=== PATIENT | female | born 1985 | race Caucasian/White ===

== ENCOUNTER 2018-06-15 15:24 | Emergency (ER) | payer OTHER ==
[2018-06-15 15:31] VITALS: BP 125/72; PULSE 100; TEMP 97.9; BMI 48.6
[2018-06-15] MEDS ORDERED: ALBUTEROL SO4 2.5/IPRATROPIUM 0.5 INH SOL 3 ML VIAL.NEB. NEB ONE ×2 (15:47→16:31)
--- NOTE | 2018-06-15 16:16 | PDOC ---
History of Present Illness - General Chief Complaint: Shortness of Breath Stated Complaint: ASTHMA Time Seen by Provider: 06/15/18 15:51 - History of Present Illness Initial Comments: 06/15/18 16:47 The patient is a 32 year old female with no significant PMH who presents for evaluation of shortness of breath. The patient reports a 2-3 day history of worsening shortness of breath with non-productive cough and associated chest tightness prompting her presentation to the ED for further evaluation. She otherwise denies fevers, chills, nausea, vomiting, abdominal pain, or changes with urination or bowel movements. Past History - Past Medical History Allergies/Adverse Reactions: Allergies Allergy/AdvReac Type Severity Reaction Status Date / Time Shellfish Allergy Severe Swelling Verified 06/15/18 15:26 Home Medications: Ambulatory Orders Albuterol Sulfate Inhaler - [Ventolin HFA Inhaler -] 1 - 2 inh PO QID PRN #1 inhaler 06/15/18 Azithromycin [Zithromax 250mg Tablets -] 250 mg PO UTDICT #6 tab 06/15/18 Ibuprofen [Advil -] 600 mg PO QID 06/15/18 Prednisone [Prednisone 50 MG TABLETS] 50 mg PO DAILY #4 tablet 06/15/18 Anemia: Yes Asthma: No Cancer: No Cardiac Disorders: No COPD: No Diabetes: No HTN: No Seizures: No Thyroid Disease: No - Surgical History Cholecystectomy: Yes - Immunization History Immunization Up to Date: Yes () - Suicide/Smoking/Psychosocial Hx Smoking Status: No Smoking History: Former smoker Have you smoked in the past 12 months: No Number of Cigarettes Smoked Daily: 3 If you are a former smoker, when did you quit?: 06/2013 Information on smoking cessation initiated: No Hx Alcohol Use: No Drug/Substance Use Hx: No Hx Substance Use Treatment: No Review of Systems - Review of Systems Comments:: 06/15/18 16:53 Constitutional: No fevers, chills, fatigue, malaise HEENT: No Rhinorrhea, nasal congestion, visual changes Cardiovascular: Chest tightness. No syncope, palpitations, lightheadedness Respiratory: Cough, SOB, No Hemoptysis, Gastrointestinal: No Abdominal pain, Nausea, Vomiting, Constipation, Diarrhea, Melena Genitourinary: No Dysuria, Frequency, Urgency, Hesitancy, Hematuria, Flank pain Musculoskeletal: No Myalgia, arthralgia Skin: No rashes, itching, bruising, pallor Neurologic: No Headache, Dizziness, Numbness, Weakness, or Tingling Psychiatric: No Hallucinations. No SI or HI *Physical Exam - Vital Signs Last Vital Signs Temp Pulse Resp BP Pulse Ox 97.9 F 100 H 22 H 125/72 97 06/15/18 15:29 06/15/18 15:29 06/15/18 15:29 06/15/18 15:29 06/15/18 15:29 - Physical Exam Comments: 06/15/18 16:53 General Appearance: Nourished. No Apparent Distress HEENT: No Pharyngeal Erythema, Tonsillar Exudate, Tonsillar Erythema Neck: No Cervical Lymphadenopathy Respiratory/Chest: Lungs Clear, Normal Breath Sounds. No Crackles, Rales, Rhonchi, Wheezing Cardiovascular: Regular Rhythm, Regular Rate. No Murmur, Gallops, Rubs Gastrointestinal/Abdominal: Normal Bowel Sounds, Soft. No Guarding, Rebound, Tenderness Musculoskeletal: No CVA Tenderness Extremity: Normal Capillary Refill Integumentary: Normal Color, Dry, Warm Neurologic: Fully Oriented, Alert, Normal Mood/Affect, Normal Response, ED Treatment Course - Medications Given in the ED: ED Medications Discontinued Medications Generic Name Dose Route Start Last Admin Trade Name Freq PRN Reason Stop Dose Admin Albuterol/Ipratropium 2 amp 06/15/18 15:47 06/15/18 15:47 Duoneb - NEB 06/15/18 15:48 2 amp NOW ONE Administration Medical Decision Making - Medical Decision Making 06/15/18 16:53 The patient is a 32 year old female with no significant PMH who presents for evaluation of shortness of breath. Differential includes but is not limited to : Pneumonia, Bronchitis, Infectious. Given the patient's history and physical exam, we will obtain a chest plain film and ekg. The patient received duonebs prior to evaluation and reports improvement in her symptoms. We will treat with duonebs and prednison and continue to monitor and reassess while here in the ED. 06/15/18 18:34 Chest plain film is unremarkable. It is likely the patient's symptoms are due to an acute bronchitis and asthma exacerbation. The patient was reassessed and reports improvement in their symptoms. We are comfortable discharging the patient home in stable condition. Patient and family made aware of impression and plan, return precautions discussed including but not limited to worsening pain or symptoms, fevers, or signs of infection, chest pain, respiratory distress, inability to tolerate oral intake, dehydration, syncope, or neurologic changes. The patient is to follow up with PMD and as recommended within 1 week, follow up information provided and the patient will call for an appointment. The patient is to take Prednisone, Albuterol, Azithromycin as instructed for duration of time and continue with supportive care, avoid triggers and precipitants. Patient is safe for outpatient follow-up. *DC/Admit/Observation/Transfer Diagnosis at time of Disposition: Cough, Shortness of breath, Bronchitis Acute asthma exacerbation Qualifiers: Asthma severity: unspecified severity Asthma persistence: unspecified Qualified Code(s): J45.901 - Unspecified asthma with (acute) exacerbation - Discharge Dispostion Disposition: HOME Condition at time of disposition: Stable Decision to Admit order: No - Prescriptions Prescriptions: Albuterol Sulfate Inhaler - [Ventolin HFA Inhaler -] 1 - 2 inh PO QID PRN #1 inhaler PRN Reason: Wheezing Azithromycin [Zithromax 250mg Tablets -] 250 mg PO UTDICT #6 tab Prednisone [Prednisone 50 MG TABLETS] 50 mg PO DAILY #4 tablet - Referrals Referrals: Suresh Gerard [Primary Care Provider] - - Patient Instructions Printed Discharge Instructions: DI for Acute Bronchitis Additional Instructions: 1) Please follow-up with your primary care doctor in the next 2-3 days. Please call tomorrow to schedule a follow up appointment. If you cannot follow up with your doctor within 1 week please return to the Emergency Department for any urgent issues. 2) Your laboratory / imaging results were normal here in the ER. 3) If you have any worsening of symptoms or any other concerns please return to the ER immediately. Return if worsening symptoms including fevers, headache, vomiting, visual or hearing disturbances, abdominal pain, chest pain, shortness of breath, syncope, dehydration, inability to take things by mouth/vomiting, altered mental status, or worsening concerning symptoms. 4) Please continue taking your home medications as directed. Your medications on discharge include Prednisone, Albuterol, and Azithromycin. - Post Discharge Activity Forms/Work/School Notes: Back to Work
[2018-06-15] MEDS ORDERED: SODIUM CHLORIDE 1,000 ML IV STA (16:27)
[2018-06-15] MEDS ORDERED: ACETAMINOPHEN 1000 MG/100 ML VIAL (NON FORMULARY) IVPB ONE (16:27)
[2018-06-15] MEDS ORDERED: predniSONE 20 MG TABLET (UD) PO ONE (16:31)
--- NOTE | 2018-06-15 18:25 | PDOC ---
Documentation entered by Doyle Trinidad SCRIBE, acting as scribe for Colt Pizano MD. Colt Pizano MD: This documentation has been prepared by the bradibAmos jordan Nirvannie, SCRIBE, under my direction and personally reviewed by me in its entirety. I confirm that the documentation accurately reflects all work, treatment, procedures, and medical decision making performed by me. Attending Attestation - Resident Resident Name: Eb Pierson - ED Attending Attestation I have performed the following: I have examined & evaluated the patient, The case was reviewed & discussed with the resident, I agree w/resident's findings & plan, Exceptions are as noted - HPI HPI: 06/15/18 16:42 The patient is a 32 year old female, with no significant past medical history, who presents to the emergency department with, 3 days of pleuritic chest pain described as a tightness with associated cough and right sided headache. Patient notes she is positive for sick contacts (her daughter). She denies recent fevers, chills, or dizziness. She denies recent nausea, vomit, diarrhea or constipation. She denies recent dysuria, frequency, urgency or hematuria. Allergies: Shellfish. - Physicial Exam PE: 06/15/18 16:49 GENERAL: Awake, alert, and fully oriented, in no acute distress HEAD: No signs of trauma NECK: Normal ROM. LUNGS: + Breath sounds equal, clear to auscultation bilaterally, brief excursions blt. HEART: Regular rate and rhythm, normal S1 and S2, no murmurs, rubs or gallops NEUROLOGICAL: Cranial nerves II through XII grossly intact. Normal speech, normal gait SKIN: Warm, Dry, normal turgor, no rashes or lesions noted. - Medical Decision Making 06/15/18 17:09 A portion of this note was documented by [employer] under my direction. I have reviewed the details of the note, within reason, and agree with the documentation with the following case summary and management plan written by me. Patient treated in the ED. Nursing notes are reviewed and incorporated into the medical decision-making. Vital signs reviewed. Peripheral IV access obtained by the nurse, laboratory studies are drawn and sent, reviewed and interpreted by myself. Vital Signs Temp Pulse Resp BP Pulse Ox 97.9 F 100 H 22 H 125/72 97 06/15/18 15:29 06/15/18 15:29 06/15/18 15:29 06/15/18 15:29 06/15/18 15:29 32-year-old female with past medical history of asthma presents with nonproductive coughing for several days. Patient reports positive sick contacts with her daughter having upper respirator infection. The patient's been having coughing and chest tightness. No fevers or chills. I suspect patient likely have an asthma exacerbation with bronchitis. We'll obtain a chest x-ray rule out pneumonia. Trial duonabs and prednisone and reassess. 06/15/18 18:20 Chest xray reviewed by me, pending official radiology read. No acute findings. Pt feels better. Will d/c with azithromycin, prednisone, and albuterol pump. Heart Score/ECG Review #1 ECG reviewed & interpreted by me at: 16:45 06/15/18 17:10 NSR 87, no std/joann, normal axis, normal intervals, QTC 425 msec. Normal ECG
--- NOTE | 2018-06-16 08:53 | EKG ---
Test Reason : Blood Pressure : / mmHG Vent. Rate : 087 BPM Atrial Rate : 087 BPM P-R Int : 144 ms QRS Dur : 080 ms QT Int : 354 ms P-R-T Axes : 062 039 044 degrees QTc Int : 425 ms NORMAL SINUS RHYTHM NORMAL ECG WHEN COMPARED WITH ECG OF 28-AUG-2013 02:43, NO SIGNIFICANT CHANGE WAS FOUND Confirmed by LEELA LONGORIA MD ([id number]) on 06/16/2018 8:53:02 AM Referred By: Confirmed By:LEELA LONGORIA MD
== END 2018-06-15 18:55 | disposition home or self-care (01) ==
LOC: JER 15:24
PROC: 3E033NZ Introduction of Analgesics, Hypnotics, Sedatives into Peripheral Vein, Percutaneous Approach (ICD-10-PCS; principal; 2018-06-15)
PROC: 3E0F7GC Introduction of Other Therapeutic Substance into Respiratory Tract, Via Natural or Artificial Opening (ICD-10-PCS; 2018-06-15)
PROC: 3E0F7GC Introduction of Other Therapeutic Substance into Respiratory Tract, Via Natural or Artificial Opening (ICD-10-PCS; 2018-06-15)
DX: J40 Bronchitis, not specified as acute or chronic (principal)
CPT/HCPCS: 71046-TC-FY; 84703; 93005; 93010; 94640; 96374; 99282-25; J0131

== ENCOUNTER 2020-07-16 20:15 | Emergency (ER) | payer OTHER ==
[2020-07-16 20:28] VITALS: BP 117/79; PULSE 88; TEMP 97; BMI 51.7
[2020-07-16] MEDS ORDERED: ACETAMINOPHEN 500 MG TABLET (FP) PO ONE (20:38)
[2020-07-16] MEDS ORDERED: ACETAMINOPHEN 500 MG TABLET (FP) ONE (20:40)
== END 2020-07-16 21:28 | disposition home or self-care (01) ==
LOC: JER 20:15
DX: R51.9 Headache, unspecified (principal); Z3A.11 11 weeks gestation of pregnancy
CPT/HCPCS: 99283-25

== ENCOUNTER 2020-08-23 17:53 | Emergency (ER) | payer OTHER ==
[2020-08-23 18:05] VITALS: BMI 51.1
[2020-08-23] MEDS ORDERED: ONDANSETRON 4 MG/2 ML VIAL IVPB ONE (18:28)
[2020-08-23] MEDS ORDERED: SODIUM CHLORIDE 1,000 ML IV STA ×2 (18:28→20:21)
[2020-08-23] MEDS ORDERED: ONDANSETRON 4 MG/2 ML VIAL ONE (19:11)
[2020-08-23 19:18] LABS: BASO % 0.7 % (0-2.0); EOS % 1.5 % (0-4.5); HEMATOCRIT 37.1 % (32.4-45.2); HEMOGLOBIN 12.2 GM/dL (10.7-15.3); LYMPH % 20.2 % (8-40); MCH 24.1 pg (25.7-33.7); MCHC 32.8 g/dl (32.0-36.0); MEAN CELL VOLUME 73.5 fl (80-96); MEAN PLT VOLUME 9.1 fl (7.5-11.1); MONO % 5.1 % (3.8-10.2); NEUT % 72.5 % (42.8-82.8); PLATELET COUNT 296 10^3/uL (134-434); RBC 5.04 M/mm3 (3.60-5.2); RDW 19.1 % (11.6-15.6); WHITE BLOOD COUNT 10.8 K/mm3 (4.0-10.0)
[2020-08-23 19:21] LABS: EPI CELLS >36 /uL (0-25.1); HYALINE CASTS 4 /uL (0-3.1); URINE APPEARANCE CLOUDY; URINE BACTERIA 3444 /uL (0-1359); URINE BILIRUBIN NEGATIVE (NEGATIVE); URINE COLOR DK YELLOW; URINE GLUCOSE (UA) NEGATIVE (NEGATIVE); URINE KETONE TRACE (NEGATIVE); URINE LEUK ESTERASE 2+ (NEGATIVE); URINE NITRITE NEGATIVE (NEGATIVE); URINE PROTEIN NEGATIVE (NEGATIVE); URINE WBC 82 /uL (0-25.8)
[2020-08-23 19:48] LABS: BLOOD UREA NITROGEN 8.4 mg/dL (7-18); CALCIUM 9.3 mg/dL (8.5-10.1)
[2020-08-23 19:51] LABS: CREATININE 0.6 mg/dL (0.55-1.3)
[2020-08-23 19:53] LABS: BILIRUBIN,TOTAL 0.4 mg/dL (0.2-1); TOT PROT 7.4 g/dl (6.4-8.2)
[2020-08-23] MEDS ORDERED: CEFTRIAXONE 1,000 MG in DEXTROSE 5%-WATER - 50 ML IVPB ONE (20:21)
[2020-08-23] MEDS ORDERED: CEFTRIAXONE 1 GM/50 ML BAG ONE (20:32)
[2020-08-23 21:30] LABS: URINE RBC 22.4 /uL (0-23.9)
[2020-08-23 21:47] VITALS: BP 126/77; PULSE 72; TEMP 98.5
== END 2020-08-23 21:47 | disposition home or self-care (01) ==
LOC: JER 17:53
PROC: 3E03329 Introduction of Other Anti-infective into Peripheral Vein, Percutaneous Approach (ICD-10-PCS; principal; 2020-08-23)
PROC: 3E033GC Introduction of Other Therapeutic Substance into Peripheral Vein, Percutaneous Approach (ICD-10-PCS; 2020-08-23)
PROC: 3E0337Z Introduction of Electrolytic and Water Balance Substance into Peripheral Vein, Percutaneous Approach (ICD-10-PCS; 2020-08-23)
PROC: 3E0337Z Introduction of Electrolytic and Water Balance Substance into Peripheral Vein, Percutaneous Approach (ICD-10-PCS; 2020-08-23)
DX: O21.1 Hyperemesis gravidarum with metabolic disturbance (principal); N30.00 Acute cystitis without hematuria; Z3A.17 17 weeks gestation of pregnancy
CPT/HCPCS: 36415; 80053; 81003; 83690; 85025; 99284-25

== ENCOUNTER 2021-01-26 08:50 | Inpatient (IN) | payer OTHER ==
[2021-01-26 09:42] VITALS: BMI 51.3
[2021-01-28 08:58] LABS: BASO % 0.2 % (0-2.0); EOS % 0.5 % (0-4.5); HEMATOCRIT 26.5 % (32.4-45.2); HEMOGLOBIN 8.7 GM/dL (10.7-15.3); LYMPH % 13.4 % (8-40); MCH 24.5 pg (25.7-33.7); MEAN CELL VOLUME 74.3 fl (80-96); MEAN PLT VOLUME 8.9 fl (7.5-11.1); MONO % 5.9 % (3.8-10.2); PLATELET COUNT 209 10^3/uL (134-434); RBC 3.57 M/mm3 (3.60-5.2); RDW 15.5 % (11.6-15.6); WHITE BLOOD COUNT 10.1 K/mm3 (4.0-10.0)
[2021-01-30 10:24] VITALS: BP 121/77; PULSE 83; TEMP 97.8
== END 2021-01-30 17:25 | disposition home or self-care (01) | DRG 540 ==
LOC: JLDR 08:50 → J3W 01-27 22:46
PROVIDERS: ADMIT Specialist; ATTEND Specialist
PROC: 10D00Z1 Extraction of Products of Conception, Low, Open Approach (ICD-10-PCS; principal; 2021-01-26)
DX: O61.0 Failed medical induction of labor (principal); O62.0 Primary inadequate contractions; O99.214 Obesity complicating childbirth; E66.01 Morbid (severe) obesity due to excess calories; Z3A.39 39 weeks gestation of pregnancy; Z37.0 Single live birth
CPT/HCPCS: 36415; 80053; 85025; 85027; 85610; 85730; 86850; 86900; 86901; 88307-TC; C9803; J0131; U0003; U0005

== ENCOUNTER 2022-12-23 11:43 | Emergency (ER) | payer BC, OTHER ==
[2022-12-23 12:06] VITALS: RESP 18; BMI 49.7
[2022-12-23 12:09] VITALS: TEMP 98.1
[2022-12-23 12:10] VITALS: BP 136/78; PULSE 68
[2022-12-23] MEDS ORDERED: ACETAMINOPHEN 1000 MG/100 ML BAG IVPB ONE (12:17)
[2022-12-23] MEDS ORDERED: ACETAMINOPHEN INJECTION 100 ML IVPB ONE (12:21)
[2022-12-23 12:47] LABS: BASO % 0.2 % (0-2.0); EOS % 1.5 % (0-4.5); HEMOGLOBIN 10.8 GM/dL (10.7-15.3); LYMPH % 12.9 % (8-40); MCH 22.7 pg (25.7-33.7); MCHC 31.9 g/dl (32.0-36.0); MEAN CELL VOLUME 71.2 fl (80-96); MEAN PLT VOLUME 8.6 fl (7.5-11.1); MONO % 4.9 % (3.8-10.2); NEUT % 80.5 % (42.8-82.8); PLATELET COUNT 345 10^3/uL (134-434); RBC 4.77 M/mm3 (3.60-5.2); RDW 16.9 % (11.6-15.6); WHITE BLOOD COUNT 11.3 K/mm3 (4.0-10.0)
[2022-12-23 12:54] LABS: ALBUMIN 3.3 g/dl (3.4-5.0); BLOOD UREA NITROGEN 12.9 mg/dL (7-18); CALCIUM 8.9 mg/dL (8.5-10.1)
[2022-12-23 12:57] LABS: CREATININE 0.8 mg/dL (0.55-1.3)
[2022-12-23 12:58] LABS: BILIRUBIN,TOTAL 0.2 mg/dL (0.2-1)
[2022-12-23 16:13] LABS: EPI CELLS 36 /uL (0-25.1); HYALINE CASTS 1 /uL (0-3.1); URINE APPEARANCE CLEAR; URINE BACTERIA 1099 /uL (0-1359); URINE BILIRUBIN NEGATIVE (NEGATIVE); URINE COLOR YELLOW; URINE GLUCOSE (UA) NEGATIVE (NEGATIVE); URINE KETONE NEGATIVE (NEGATIVE); URINE LEUK ESTERASE TRACE (NEGATIVE); URINE NITRITE NEGATIVE (NEGATIVE); URINE PROTEIN NEGATIVE (NEGATIVE); URINE UROBILINOGEN 0.2 mg/dL (0.2-1.0); URINE WBC 25 /uL (0-25.8)
== END 2022-12-23 18:09 | disposition home or self-care (01) ==
LOC: JER 11:43
PROC: 3E033NZ Introduction of Analgesics, Hypnotics, Sedatives into Peripheral Vein, Percutaneous Approach (ICD-10-PCS; principal; 2022-12-23)
DX: R10.9 Unspecified abdominal pain (principal); K42.9 Umbilical hernia without obstruction or gangrene
CPT/HCPCS: 36415; 74177-TC; 80053; 81003; 83690; 84703; 85025; 87086; 87186; 93005; 93010; 99285-25

== ENCOUNTER 2023-11-28 14:59 | Inpatient (IN) | payer BC, OTHER ==
[2023-11-28 15:18] VITALS: BMI 48.8
[2023-11-28] MEDS ORDERED: MORPHINE SULFATE 2 MG/ML SYRINGE ONE (16:18)
[2023-11-28] MEDS: morphine CARPU-JECT 2 MG/1 ML DISP.SYRIN IVPUSH ONE (16:30)
[2023-11-28 16:34] LABS: BASO % 0.1 % (0-2.0); EOS % 2.2 % (0-4.5); HEMATOCRIT 34.9 % (32.4-45.2); HEMOGLOBIN 11.2 GM/dL (10.7-15.3); LYMPH % 30.8 % (8-40); MCH 22.6 pg (25.7-33.7); MEAN CELL VOLUME 70.7 fl (80-96); MEAN PLT VOLUME 8.9 fl (7.5-11.1); MONO % 4.3 % (3.8-10.2); NEUT % 62.6 % (42.8-82.8); PLATELET COUNT 336 10^3/uL (134-434); RBC 4.93 M/mm3 (3.60-5.2); RDW 17.5 % (11.6-15.6); WHITE BLOOD COUNT 10.5 K/mm3 (4.0-10.0)
[2023-11-28 16:52] LABS: POTASSIUM 3.9 mmol/L (3.5-5.1)
[2023-11-28 16:54] LABS: CALCIUM 9.2 mg/dL (8.5-10.1)
[2023-11-28 16:55] LABS: ALBUMIN 3.5 g/dl (3.4-5.0); BLOOD UREA NITROGEN 9.8 mg/dL (7-18)
[2023-11-28 16:55] LABS: VENOUS O2 SATURATION 47.3 % (70-80); VENOUS PCO2 40.8 mmHg (38-52); VENOUS PH 7.387 (7.310-7.410)
[2023-11-28 16:58] LABS: CREATININE 0.7 mg/dL (0.55-1.3)
[2023-11-28 16:59] LABS: BILIRUBIN,TOTAL 0.4 mg/dL (0.2-1)
[2023-11-28 17:49] LABS: EPI CELLS 16 /uL (0-25.1); HYALINE CASTS 2 /uL (0-3.1); PH,URINE 5.5 (5.0-8.0); URINE APPEARANCE CLOUDY; URINE BACTERIA 1872 /uL (0-1359); URINE BILIRUBIN NEGATIVE (NEGATIVE); URINE COLOR ORANGE; URINE GLUCOSE (UA) NEGATIVE (NEGATIVE); URINE KETONE NEGATIVE (NEGATIVE); URINE LEUK ESTERASE 2+ (NEGATIVE); URINE NITRITE NEGATIVE (NEGATIVE); URINE PROTEIN 2+ (NEGATIVE); URINE RBC 11654 /uL (0-23.9); URINE UROBILINOGEN 0.2 mg/dL (0.2-1.0); URINE WBC 284 /uL (0-25.8)
[2023-11-28] MEDS ORDERED: morphine SULFATE 4 MG/ML VIAL ONE (20:53)
[2023-11-28] MEDS: morphine CARPU-JECT 4 MG/1 ML DISP.SYRIN IVPUSH ONE (20:57)
[2023-11-28] MEDS: LACTATED RINGERS SOLUTION 1000 ML INFUS.BAG IV ONE (21:06)
[2023-11-28 22:20] LABS: INR 1.07 (0.83-1.09); PROTHROMBIN TIME (PATIENT) 12.1 SEC (9.7-13.0)
[2023-11-28 22:23] LABS: ACTIVATED PTT 29.2 SECONDS (25.2-36.5)
[2023-11-28] MEDS ORDERED: CEFTRIAXONE 1 GM/50 ML BAG ONE (22:44)
[2023-11-28] MEDS: LACTATED RINGERS SOLUTION 1,000 ML/1,000 ML INFUS.BAG IV SCH (22:59)
[2023-11-29] MEDS ORDERED: MORPHINE SULFATE 2 MG/ML SYRINGE IVPUSH PRN (01:09)
[2023-11-29] MEDS ORDERED: ONDANSETRON 4 MG/2 ML VIAL IVPUSH PRN (01:20)
[2023-11-29] MEDS ORDERED: ALBUTEROL SO4 HFA INHALER IH PRN (01:24)
[2023-11-29 02:28] VITALS: RESP 18
[2023-11-29] MEDS: SODIUM CHLORIDE 1,000 ML IV SCH (02:39)
[2023-11-29 07:54] LABS: HEMATOCRIT 31.9 % (32.4-45.2); MCH 22.6 pg (25.7-33.7); MCHC 31.5 g/dl (32.0-36.0); MEAN CELL VOLUME 71.7 fl (80-96); MEAN PLT VOLUME 8.9 fl (7.5-11.1); PLATELET COUNT 282 10^3/uL (134-434); RBC 4.44 M/mm3 (3.60-5.2); RDW 17.4 % (11.6-15.6); WHITE BLOOD COUNT 6.5 K/mm3 (4.0-10.0)
[2023-11-29 08:13] LABS: POTASSIUM 4.4 mmol/L (3.5-5.1)
[2023-11-29 08:40] LABS: CALCIUM 8.6 mg/dL (8.5-10.1)
[2023-11-29 08:41] LABS: BLOOD UREA NITROGEN 8.4 mg/dL (7-18); MAGNESIUM 2.2 mg/dL (1.8-2.4)
[2023-11-29 08:44] LABS: CREATININE 0.7 mg/dL (0.55-1.3); PHOSPHOROUS 3.5 mg/dL (2.5-4.9)
[2023-11-29 08:46] LABS: BILIRUBIN,TOTAL 0.6 mg/dL (0.2-1)
[2023-11-29] MEDS ORDERED: CEFTRIAXONE 1 GM/50 ML BAG ONE (09:32)
[2023-11-29] MEDS ORDERED: ACETAMINOPHEN INJECTION 100 ML ONE (10:01)
[2023-11-29] MEDS: ACETAMINOPHEN 1000 MG/100 ML BAG IVPB PRN (10:08)
[2023-11-29] MEDS: CEFTRIAXONE 1 GM in DEXTROSE 5%-WATER - 50 ML IVPB SCH (10:09)
[2023-11-29] MEDS: IOHEXOL (OMNIPAQUE IV) 350 MG/ML - 100 ML BOTTLE PO ONE (10:18)
[2023-11-29 15:17] VITALS: BP 119/42; PULSE 77; TEMP 98.5
== END 2023-11-29 17:35 | disposition home or self-care (01) | DRG 394 ==
LOC: JER 14:59 → JERBED 20:48
PROVIDERS: ADMIT Internal Medicine; ATTEND Nurse Practitioner Acute Care
DX: K42.0 Umbilical hernia with obstruction, without gangrene (principal); N39.0 Urinary tract infection, site not specified; Z68.42 Body mass index [BMI] 45.0-49.9, adult; B96.20 Unspecified Escherichia coli [E. coli] as the cause of diseases classified elsewhere; J45.909 Unspecified asthma, uncomplicated; E66.01 Morbid (severe) obesity due to excess calories
CPT/HCPCS: 36415; 74019-TC-FY; 74177-TC; 80053; 81003; 82803; 83605; 83690; 83735; 84100; 84703; 85025; 85027; 85610; 85730; 86850; 86900; 86901; 87086; 87186; 93005; 93010; 99285-25; J0131

== ENCOUNTER 2023-12-03 04:12 | Day surgery (SDC) | payer BC, OTHER ==
[2023-11-30 16:43] VITALS: BMI 48.9
[2023-12-03] MEDS ORDERED: BUPIVACAINE HCL/PF 0.25% (2.5MG/ML) 10 ML VIAL ONE ×2 (14:15→16:12)
[2023-12-03] MEDS ORDERED: PROPOFOL 20 ML ONE ×2 (14:23→17:51)
[2023-12-03] MEDS ORDERED: ROCURONIUM BROMIDE 50 MG/5 ML SYRINGE ONE (14:23)
[2023-12-03] MEDS ORDERED: MIDAZOLAM HCL 2 MG/2 ML SINGLE DOSE VIAL ONE (14:23)
[2023-12-03] MEDS: ceFAZolin SODIUM 1 GM VIAL IVPB ONE (15:40)
[2023-12-03] MEDS: BUPIVACAINE HCL/PF 0.25% (2.5MG/ML) 10 ML VIAL IJ ONE (15:45)
[2023-12-03] MEDS ORDERED: ALBUTEROL SO4 HFA INHALER IH ONE (16:22)
[2023-12-03] MEDS ORDERED: DEXAMETHASONE SOD PHOSPHATE 4 MG/1 ML VIAL ONE (16:22)
[2023-12-03] MEDS ORDERED: ONDANSETRON 4 MG/2 ML VIAL ONE (16:22)
[2023-12-03] MEDS ORDERED: oxyCODONE HCL 5 MG TABLET PO PRN (18:27)
[2023-12-03] MEDS ORDERED: KETOROLAC TROMETHAMINE 15 MG/ML VIAL IVPUSH PRN (18:27)
[2023-12-03] MEDS: LACTATED RINGERS SOLUTION 1,000 ML IV SCH (18:45)
[2023-12-03] MEDS: ACETAMINOPHEN 325 MG TABLET (FP) PO SCH (18:57)
[2023-12-03] MEDS ORDERED: HYDROmorphone HCL CARPU-JECT 2 MG/1 ML DISP.SYRIN ONE (19:55)
[2023-12-03] MEDS: HYDROmorphone HCl 2 MG/ML VIAL IVPUSH PRN (19:58)
[2023-12-03 21:13] VITALS: RESP 18
[2023-12-04 02:18] LABS: PH,URINE 6.5 (5.0-8.0); URINE APPEARANCE CLEAR; URINE BILIRUBIN NEGATIVE (NEGATIVE); URINE COLOR YELLOW; URINE GLUCOSE (UA) NEGATIVE (NEGATIVE); URINE KETONE NEGATIVE (NEGATIVE); URINE LEUK ESTERASE NEGATIVE (NEGATIVE); URINE NITRITE NEGATIVE (NEGATIVE); URINE PROTEIN NEGATIVE (NEGATIVE); URINE UROBILINOGEN 0.2 mg/dL (0.2-1.0)
[2023-12-04] MEDS: oxyCODONE HCL 5 MG TABLET PO PRN (06:17)
[2023-12-04 06:41] VITALS: BP 119/61; PULSE 66; TEMP 99
[2023-12-04] MEDS: ENOXAPARIN NA (PORCINE) 40 MG/0.4 ML DISP.SYRIN SQ SCH (09:57)
[2023-12-04 10:18] LABS: HEMATOCRIT 34.1 % (32.4-45.2); HEMOGLOBIN 10.7 GM/dL (10.7-15.3); MCH 22.5 pg (25.7-33.7); MCHC 31.4 g/dl (32.0-36.0); MEAN CELL VOLUME 71.8 fl (80-96); PLATELET COUNT 341 10^3/uL (134-434); RBC 4.75 M/mm3 (3.60-5.2); RDW 17.7 % (11.6-15.6); WHITE BLOOD COUNT 9.2 K/mm3 (4.0-10.0)
[2023-12-04 10:37] LABS: POTASSIUM 4.2 mmol/L (3.5-5.1)
[2023-12-04 10:42] LABS: CALCIUM 8.8 mg/dL (8.5-10.1)
[2023-12-04 10:43] LABS: ALBUMIN 3.2 g/dl (3.4-5.0); BLOOD UREA NITROGEN 8.2 mg/dL (7-18)
[2023-12-04 10:46] LABS: CREATININE 0.8 mg/dL (0.55-1.3)
[2023-12-04 10:47] LABS: BILIRUBIN,TOTAL 0.4 mg/dL (0.2-1)
[2023-12-04 10:48] LABS: TOT PROT 6.2 g/dl (6.4-8.2)
[2023-12-04] MEDS: DOCUSATE SODIUM 100 MG CAPSULE (FP) PO PRN (11:21)
[2023-12-04] MEDS: POLYETHYLENE GLYCOL (HEALTHYLAX) 3350 17 GM PACKET PO SCH (11:21)
== END 2023-12-04 15:38 | disposition home or self-care (01) ==
LOC: JASUSAT 04:12 → JASU-SURG 18:30 → J2C 18:30 → J5S 21:16 → UNDOADMOB 23:56 → JASUSAT 23:56
PROVIDERS: ATTEND Surgery
PROC: 0WUF4JZ Supplement Abdominal Wall with Synthetic Substitute, Percutaneous Endoscopic Approach (ICD-10-PCS; principal; 2023-12-03 13:00)
DX: K42.0 Umbilical hernia with obstruction, without gangrene (principal)
CPT/HCPCS: 36415; 80053; 81003; 81025; 85027; 94010; 94760; C1781